=== PATIENT | female | born 1955 | race Caucasian/White ===

== ENCOUNTER → 2020-08-03 13:26 | Outpatient (CLI) | payer OTHER, SELFPAY ==
--- NOTE | ~2020-08-03 | DEXA_ITS ---
Bone Density Report Name: Laurel Esquivel Age: 64 Sex: Female Ethnicity: White Date of : 1955 Indication: postmenopausal; screening for osteoporosis; Referring Provider: PABLITO, BARI [place] Study: Bone densitometry was performed. Exam Date: August 03, 2020 Accession number: [id number] Bone Density: Region BMD T-score Z-score Classification AP Spine (L1-L4) 0.669 -3.4 -1.8 Osteoporosis Femoral Neck (Left) 0.556 -2.6 -1.2 Osteoporosis Total Hip (Left) 0.723 -1.8 -0.7 Osteopenia Femoral Neck (Right) 0.596 -2.3 -0.9 Osteopenia Total Hip (Right) 0.709 -1.9 -0.8 Osteopenia Total Hip Mean 0.716 -1.9 -0.8 Osteopenia World Health Organization criteria for BMD impression classify patients as: Normal (T-score at or above -1.0), Osteopenia (T-score between -1.0 and -2.5), or Osteoporosis (T-score at or below -2.5). 10-year Fracture Risk: FRAX not reported because: Some T-score for Spine Total or Hip Total or Femoral Neck at or below -2.5 Clinical Information Provided by Patient: Has used the following medications: Vitamin D Patient maximum height was 60 Menopause Age: 56 Drinks caffeinated beverages Onset of menses at age 16 Number of children 2 Missed period for more than 6 months in a row Impression: The patient has osteoporosis, based on the Total Spine T-score. Discussion: INCREASED RISK OF FRACTURE. BONE DENSITY IS UNDESIRABLY LOW AT ONE OR MORE SKELETAL SITES, CONSISTENT WITH POSTMENOPAUSAL OSTEOPOROSIS. This patient's lowest T-score meets the World Health Organization's (WHO) criteria for osteoporosis at one or more sites (T-score -2.5 or below). In untreated patients, the risk of osteoporotic fracture increases approximately two-fold for each 1.0 SD decrease in T-score. Low bone density is not the only risk factor for fracture; also consider factors such as patient's age, frailty or poor health, risk of falling, risk of injury, previous osteoporotic fracture, family history of osteoporosis, cigarette smoking, low body weight, etc. Not everyone with low bone mineral density has osteoporosis; osteomalacia and other metabolic bone disorders should also be considered. Patients who have osteoporosis should be evaluated for specific diseases and conditions (secondary causes) that may cause or contribute to bone loss. The [place] [employer]ocrinologists (AACE) and National Osteoporosis Foundation (NOF) recommend pharmacologic intervention for all postmenopausal women whose T-score is in this range. The patient should follow a healthful lifestyle (good nutrition with adequate calcium and vitamin D, and appropriate weight-bearing exercise). Follow-Up: Consider a repeat BMD and Vertebral Fracture Assessment (VFA) exam in 2 years or sooner if medically necessary, to reassess this patient's status
== END ==
PROVIDERS: PCP Family Medicine; Visit Provider Family Medicine
DX: M81.0 Age-related osteoporosis without current pathological fracture (principal); M85.852 Other specified disorders of bone density and structure, left thigh; M85.851 Other specified disorders of bone density and structure, right thigh
CPT/HCPCS: 77080

== ENCOUNTER 2020-10-10 06:54 | Outpatient (NON) | payer OTHER, SELFPAY ==
[2020-10-10 18:01] LABS: SARS-CoV-2 RNA PCR Negative
== END 2020-10-10 06:55 ==
LOC: ANHCOVIDDT 07:01
PROVIDERS: PCP Family Medicine; Visit Provider Family Medicine
DX: R50.9 Fever, unspecified (principal); Z20.828 Contact with and (suspected) exposure to other viral communicable diseases
CPT/HCPCS: 87635; C9803; U0003

== ENCOUNTER → 2020-12-08 01:37 | Outpatient (CLI) | payer OTHER, SELFPAY ==
[2020-12-08 23:34] LABS: SARS-CoV-2 RNA PCR Negative
== END ==
PROVIDERS: PCP Family Medicine; Visit Provider Internal Medicine Gastroenterology
DX: Z01.812 Encounter for preprocedural laboratory examination (principal); Z20.822 Contact with and (suspected) exposure to COVID-19
CPT/HCPCS: C9803; U0003; U0005

== ENCOUNTER 2020-12-12 01:07 | Day surgery (SDC) | payer OTHER, SELFPAY ==
[2020-12-07 13:44] VITALS: BMI 22.8
[2020-12-12 08:26] VITALS: BP 148/79; PULSE 62; RESP 16; TEMP 36.9; O2SAT 100; BMI 21.7
[2020-12-12] MEDS: LACTATED RINGERS 1,000 ML 150 ML IV CONT (08:41)
--- NOTE | 2020-12-12 09:01 | P.PNAN_ITS ---
Anes - Initial Pre Proc Eval Procedure: Operation Date: 12/12/20 09:30 Proposed Procedures p Esophagogastroduodenoscopy - Josh Fernandez MD Date/Time: 12/12/20 09:01 Surgeon: Josh Fernandez MD Pre Op Diagnosis: GERD Patient Data Age: 65 Gender: F Height: 1.52 m Weight: 50.3 kg Last Vital Signs Temp 36.9 C 12/12/20 08:26 Pulse 62 12/12/20 08:26 Resp 16 12/12/20 08:26 BP 148/79 H 12/12/20 08:26 Pulse Ox 100 12/12/20 08:26 Allergies Allergy/AdvReac Type Severity Reaction Status Date / Time No Known Allergies Allergy Verified 12/12/20 08:23 Home Medications Medication Instructions Recorded Confirmed Type pantoprazole 40 mg tablet,delayed 40 mg PO QAM 11/29/20 12/07/20 History release zolpidem 10 mg tablet 10 mg PO ONCE 11/29/20 12/07/20 History Patient hx anesthesia problems: none Family hx anesthesia problems: none PMFSH Past Medical History Medical History Diaphragmatic disorder GERD (gastroesophageal reflux disease) Normal colonoscopy Osteoarthritis Osteoporosis Sinusitis Family History Family History Father Patient's father is in good health Family history of alcoholism Cerebrovascular accident Sibling Patient's sister is in good health Patient's brother is in good health Family history of seizure disorder Grandparent Malignant neoplasm of prostate, Onset Age: 80 Family history of lung cancer, Onset Age: 65 Other Diabetes mellitus Family history of allergic disorder Family history of attention deficit hyperactivity disorder (ADHD) Family history of eczema Social History Social History (Updated 12/03/20 @ 14:19 by Keysha Winslow [facility]) Smoking status: Never smoker Alcohol intake: never Substance use: never Substance use type: does not use Living arrangements: with family Gender identity (if verbalized by the patient): Female Spiritual care concerns: No Anes - Eval Final PreProcedure Day of Procedure 12/12/20 09:01 Patient weight: normal Heart: regular rate and rhythm Lungs: clear to auscultation and normal air movement Airway: Mallampati scale class II Neurological: alert and oriented Last oral intake: >/= 8 hours ASA classification: II Emergent: no Anesthetic plan: proceed Anesthesia type and monitoring: general GIVS Informed Consent: The patient's anesthetic plan and its attendant risks and benefits were discussed with the patient/family/POA. Questions were solicited and answers provided to the satisfaction of the patient/family/POA.
--- NOTE | 2020-12-12 09:42 | WPDHPUPDATE1 ---
History and Physical Update Update Date/Time: 12/12/20 09:42 History and Physical has been reviewed, including an updated exam of the patient. There are NO changes in the patient's condition. Risks, benefits, and alternatives have been discussed and questions answered. Patient agrees to proceed with procedure.
[2020-12-12 10:01] VITALS: BP 121/81; PULSE 65; RESP 17; O2SAT 97
[2020-12-12 10:11] VITALS: BP 121/81; PULSE 62; RESP 18; O2SAT 99
[2020-12-12 10:20] VITALS: BP 130/81; PULSE 66; RESP 14; O2SAT 99
== END 2020-12-12 10:22 | disposition home or self-care (01) ==
PROVIDERS: PCP Family Medicine; Visit Provider Internal Medicine Gastroenterology
PROC: 0DJ08ZZ Inspection of Upper Intestinal Tract, Via Natural or Artificial Opening Endoscopic (ICD-10-PCS; CPT 43235; principal; 2020-12-12 09:30)
DX: K29.50 Unspecified chronic gastritis without bleeding (principal); K21.9 Gastro-esophageal reflux disease without esophagitis; M81.0 Age-related osteoporosis without current pathological fracture
CPT/HCPCS: 43239; 88305; J2001; J2704; J7120

== ENCOUNTER 2021-02-01 16:40 | Emergency (ER) | payer OTHER, SELFPAY ==
[2021-02-01 16:53] VITALS: BP 137/71; PULSE 73; RESP 16; TEMP 36.6; O2SAT 99
--- NOTE | 2021-02-01 17:27 | ED.URI ---
HPI - URI/Sore Throat General Chief Complaint: Upper Respiratory Infection Stated Complaint: Sore Throat,Congestion Time Seen by Provider: 02/01/21 17:13 Source: patient Mode of arrival: ambulatory Limitations: no limitations History of Present Illness HPI Narrative: Patient presents today complaining of scratchiness in her throat, postnasal drip, ear fullness, and a possible right tonsil stone. Symptoms began 5 days ago. She tried to dislodge the tonsil stones with her WaterPik today and caused some bleeding on her tonsils. She denies a sore throat. She has been using Flonase, NyQuil, and Tylenol Sinus with some mild relief. She has had a [employer] COVID-19 vaccine on December 17. elicited complaint: other (Ear pressure, scratchiness in her throat) Related Data Home Medications Medication Instructions Recorded Confirmed pantoprazole 40 mg tablet,delayed 40 mg PO QAM 11/29/20 02/01/21 release zolpidem 10 mg tablet 10 mg PO HS 11/29/20 02/01/21 alendronate 70 mg PO WEEKLY 02/01/21 02/01/21 Allergies Allergy/AdvReac Type Severity Reaction Status Date / Time No Known Allergies Allergy Verified 02/01/21 16:44 Review of Systems Review of Systems: Narrative: CONSTITUTIONAL: Denies body aches, fever, chills, or sweats. EYES: Denies visual changes, redness, or discharge. ENT: Denies rhinorrhea, congestion, sore throat, or otalgia.+ Ear pressure, scratchy throat, tonsil stone CARDIOVASCULAR: Denies chest pain, palpitations, or edema. RESPIRATORY: Denies cough or dyspnea. GASTROINTESTINAL: Denies abdominal pain, nausea, vomiting, or diarrhea. GENITOURINARY: Denies dysuria or hematuria. SKIN: Denies rash, itching, or wounds. MUSCULOSKELETAL: Denies back pain, joint pain, or myalgia. NEUROLOGIC: Denies headache, numbness, tingling, or weakness. PSYCH: Denies depression or anxiety. [facility] Past Medical History Medical History Diaphragmatic disorder GERD (gastroesophageal reflux disease) Normal colonoscopy Osteoarthritis Osteoporosis Sinusitis Family History Family History Father Patient's father is in good health Family history of alcoholism Cerebrovascular accident Sibling Patient's sister is in good health Patient's brother is in good health Family history of seizure disorder Grandparent Malignant neoplasm of prostate, Onset Age: 80 Family history of lung cancer, Onset Age: 65 Other Diabetes mellitus Family history of allergic disorder Family history of attention deficit hyperactivity disorder (ADHD) Family history of eczema Social History Social History (Updated 12/03/20 @ 14:19 by Keysha Winslow [facility]) Smoking status: Never smoker Alcohol intake: never Substance use: never Substance use type: does not use Gender identity (if verbalized by the patient): Female Spiritual care concerns: No Comments At time of signature, I have reviewed and agree with nursing past medical, surgical, social and family history unless otherwise noted. Please see nursing chart for further information. There is no relevant family history pertinent to the presenting complaint Exam Narrative: Exam Narrative: GENERAL: Well-appearing, well-nourished, and in no acute distress. HEAD: Normocephalic, atraumatic. EYES: EOMI. No redness or drainage. Conjunctivae normal. ENT: Mucous membranes pink and moist. Nares clear. No rhinorrhea. TMs normal bilaterally. Throat normal. There is a tiny white pustule to the right posterior palatine arch without surrounding erythema or swelling. Tonsils are normal. No tonsil stones visualized. Uvula midline. NECK: Normal AROM. Supple. No lymphadenopathy. CHEST: No respiratory distress. Clear to auscultation. HEART: Regular rate and rhythm. No murmur appreciated. Normal peripheral pulses. EXTREMITIES: Normal range of motion.
== END 2021-02-01 17:47 | disposition home or self-care (01) ==
PROVIDERS: Emergency Provider Nurse Practitioner; PCP Family Medicine
DX: J30.9 Allergic rhinitis, unspecified (principal); K21.9 Gastro-esophageal reflux disease without esophagitis; M19.90 Unspecified osteoarthritis, unspecified site; M81.0 Age-related osteoporosis without current pathological fracture
CPT/HCPCS: 87081; 87880; 99213; G0463

== ENCOUNTER → 2021-11-04 09:23 | Outpatient (CLI) | payer OTHER, SELFPAY ==
[2021-11-04 19:02] LABS: SARS-CoV-2 RNA PCR Positive
== END ==
PROVIDERS: PCP Family Medicine; Visit Provider Family Medicine
DX: U07.1 COVID-19 (principal); R50.9 Fever, unspecified
CPT/HCPCS: C9803; U0003; U0005

== ENCOUNTER 2022-05-27 10:52 | Emergency (ER) | payer OTHER, SELFPAY ==
[2022-05-27] VITALS (21 sets, daily range): BP systolic 115–134; BP diastolic 69–89; PULSE 50–72; RESP 9–23; TEMP 37; O2SAT 98–100
--- NOTE | ~2022-05-27 | XR_ITS ---
EXAMINATION: XR chest 2V DATE: 05/27/2022 11:19 INDICATION: Generalized chest pain TECHNIQUE: PA and lateral views of the chest are obtained. COMPARISON: None available FINDINGS: The lungs are free of acute opacities. No pleural effusion or pneumothorax. The cardiomedia stinal silhouette is normal. There is moderate thoracic spondylosis. Surgical clips in the right uppe r quadrant are likely from prior cholecystectomy. IMPRESSION: 1. No acute cardiopulmonary abnormality. Reviewed, dictated and finalized at location A.
--- NOTE | 2022-05-27 10:59 | ECG_ITS ---
Measurements Intervals [place] Rate: 56 P: -3 NV: 164 QRS: 53 QRSD: 91 T: 61 QT: 375 QTc: 365 Interpretive Statements SINUS BRADYCARDIA NONSPECIFIC ST ABNORMALITY ABNORMAL ECG NO PREVIOUS ECG AVAILABLE FOR COMPARISON Electronically Signed On 05-27-2022 12:10:47 CDT by Michael Perez M.D.
--- NOTE | 2022-05-27 11:12 | ED.CHESTPAIN ---
HPI - Chest Pain General Chief Complaint: Chest Pain Stated Complaint: chest pain, dizzy Time Seen by Provider: 05/27/22 11:12 History of Present Illness HPI narrative: Patient is a 66-year-old female with history of acid reflux presenting to the emergency department for evaluation of left-sided chest pain. Patient reports onset of left-sided chest pain that occurred this morning while she was at rest. Patient believes the pain was around 9 in the morning. Described as a sharp, aching pain over the left side of her chest without radiation to the back, shoulder, neck. She did report mild discomfort of her left arm. Pain lasted for approximately 10 minutes and is now resolved. She reports associated diaphoresis and nausea. Patient reports history of this in the past for which she had a stress test performed which was normal. Patient denies any recent long car or air travel. Denies any leg swelling or calf pain. Denies history of DVT or coagulopathy. Patient states that she took an pantoprazole which she is wondering if that contributed to her symptoms. Patient does not smoke. She denies history of coronary artery disease in self. She reports her father had a history of stroke, no known history of heart attack in immediate family members. Related Data Home Medications Medication Instructions Recorded Confirmed pantoprazole 40 mg tablet,delayed 40 mg PO QAM 11/29/20 09/10/21 release zolpidem 10 mg tablet 10 mg PO HS 11/29/20 09/10/21 alendronate 70 mg tablet 70 mg PO WEEKLY 02/01/21 09/10/21 Bacillus coagulans 250 million cell PO 06/19/21 09/10/21 cell chewable tablet (Digestive Advantage Probiotic Gummy) glucosamine 500 mg-msm 500 tablet PO 06/19/21 09/10/21 mg-Boswellia 33.3 mg-herb 182 70 mg tablet magnesium L-lactate 84 mg 84 mg PO TID 06/19/21 09/10/21 tablet,extended release multivitamin, stress formula 1 tablet PO DAILY 06/19/21 09/10/21 Allergies Allergy/AdvReac Type Severity Reaction Status Date / Time No Known Allergies Allergy Verified 09/10/21 10:41 Review of Systems Review of Systems: CONSTITUTIONAL: Denies fever, chills, or sweats. EYES: Denies visual changes, redness, or discharge. ENT: Denies rhinorrhea, congestion, sore throat, or otalgia. CARDIOVASCULAR: Denies current chest pain, palpitations, or edema. RESPIRATORY: Denies cough or dyspnea. GASTROINTESTINAL: Denies abdominal pain, nausea, vomiting, or diarrhea. GENITOURINARY: Denies dysuria or hematuria. SKIN: Denies rash or itching. MUSCULOSKELETAL: Denies back pain, joint pain, or myalgia. NEUROLOGIC: Denies headache, numbness, or weakness. [facility] Past Medical History Medical History Diaphragmatic disorder GERD (gastroesophageal reflux disease) Normal colonoscopy Osteoarthritis Osteoporosis Sinusitis Surgical History Surgical History H/O colposcopy with cervical biopsy H/O dilation and curettage 1976 for AUB History of cholecystectomy [place] teeth removed Family History Family History Father Patient's father is in good health Family history of alcoholism Cerebrovascular accident Sibling Patient's sister is in good health Patient's brother is in good health Family history of seizure disorder Grandparent Malignant neoplasm of prostate, Onset Age: 80 Family history of lung cancer, Onset Age: 65 Other Diabetes mellitus Family history of allergic disorder Family history of attention deficit hyperactivity disorder (ADHD) Family history of eczema Social History Social History Smoking status: Never smoker Alcohol intake: current Substance use: never Substance use type: does not use Gender identity (if verbalized by the patient): Female Spiritual care concerns: No
[2022-05-27 11:21] LABS: Basophils Absolute Auto 0.1 K/mm3 (0.0-0.1); Basophils Percent Auto 0.8 % (0.2-1.2); Eosinophils Absolute Auto 0.1 K/mm3 (0-0.3); Eosinophils Percent Auto 0.7 % (0-4.4); Hematocrit 39.4 % (37.0-47.0); Hemoglobin 12.8 g/dL (12.0-15.0); Immature Granulocyte Absolute 0.03 K/mm3 (0.00-0.031); Immature Granulocyte Percent A 0.4 % (0-0.5); Lymphocytes Absolute Auto 1.77 K/mm3 (0.9-3.2); Lymphocytes Percent Auto 24.7 % (18.3-44.2); Mean Corpuscular HGB Conc 32.5 g/dl (32-36); Mean Corpuscular Volume 92.3 fl (80-100); Mean Platelet Volume 10.1 fl (7.4-10.4); Monocytes Absolute Auto 0.7 K/mm3 (0.1-0.6); Monocytes Percent Auto 9.6 % (2.6-8.5); Neutrophils Absolute Auto 4.6 K/mm3 (1.3-6.7); Neutrophils Percent Auto 63.8 % (45.5-73.1); Platelet Count Result 282 k/mm3 (150-375); Red Blood Count 4.27 M/mm3 (4.2-5.4); Red Cell Distribution Width 13.3 % (11.5-14.5); White Blood Count 7.2 K/mm3 (4.5-10.0)
[2022-05-27 11:32] LABS: Alanine Aminotransferase 14 U/L (6-35); Albumin Level 4.5 g/dL (3.5-5.1); Alkaline Phosphatase 57 U/L (38-126); Anion Gap 8 mmol/L (8-16); Aspartate Amino Transferase 23 U/L (14-36); Bilirubin,Total 0.4 mg/dL (0.2-1.3); Blood Urea Nitrogen 15 mg/dL (7-17); Calcium 9.1 mg/dL (8.4-10.2); Carbon Dioxide 29 mmol/L (22-30); Chloride 101 mmol/L (98-107); Estimated CRCL calculation 44 ml/min; Estimated Glomerular Filt Rate > 60; Glucose 91 mg/dL (65-110); Lipase 64 U/L (23-300); Potassium 4.3 mmol/L (3.4-5.0); Sodium 138 mmol/L (137-145)
[2022-05-27 11:37] LABS: Partial Thromboplastin Time 28.1 SECONDS (22.3-36.8); Prothrombin Time 12.7 Seconds (11.1-14.7)
[2022-05-27 11:44] LABS: Troponin I < 0.012 ng/mL (0.000-0.034)
[2022-05-27] MEDS: ASPIRIN 81 MG CHEWABLE TABLET 324 MG PO (12:29)
[2022-05-27 14:38] LABS: Troponin I < 0.012 ng/mL (0.000-0.034)
== END 2022-05-27 15:10 | disposition home or self-care (01) ==
PROVIDERS: Emergency Provider Emergency Medicine; PCP Family Medicine
DX: R07.89 Other chest pain (principal); K21.9 Gastro-esophageal reflux disease without esophagitis; M19.90 Unspecified osteoarthritis, unspecified site; M81.0 Age-related osteoporosis without current pathological fracture; R00.1 Bradycardia, unspecified; R94.31 Abnormal electrocardiogram [ECG] [EKG]
CPT/HCPCS: 36415; 71046; 80053; 83690; 84484; 85025; 85610; 85730; 93005; 99284; A9270

== ENCOUNTER → 2022-08-07 12:21 | Outpatient (CLI) | payer OTHER, SELFPAY ==
--- NOTE | ~2022-08-07 | DEXA_ITS ---
Bone Density Report Name: TAWANA WESTBROOK Age: 66 Sex: Female Ethnicity: White Date of : 1955 Indication: postmenopausal osteoporosis; monitoring treatment; inflammatory bowel disease; Referring Provider: PABLITO, BARI Bangura Study: Bone densitometry was performed. Exam Date: August 07, 2022 Accession number: [id number] Bone Density: Region BMD T-score Z-score Classification AP Spine (L1-L4) 0.716 -3.0 -1.3 Osteoporosis Femoral Neck (Left) 0.576 -2.5 -1.0 Osteoporosis Total Hip (Left) 0.749 -1.6 -0.4 Osteopenia Femoral Neck (Right) 0.647 -1.8 -0.3 Osteopenia Total Hip (Right) 0.733 -1.7 -0.5 Osteopenia Total Hip Mean 0.741 -1.7 -0.5 Osteopenia World Health Organization criteria for BMD impression classify patients as: Normal (T-score at or above -1.0), Osteopenia (T-score between -1.0 and -2.5), or Osteoporosis (T-score at or below -2.5). 10-year Fracture Risk: FRAX not reported because: Some T-score for Spine Total or Hip Total or Femoral Neck at or below -2.5 Treated for osteoporosis Previous Exams: Region Exam Age BMD T-score BMD Change BMD Change Date g/cm2 vs Baseline vs Previous AP Spine(L1-L4) 08/07/2022 66 0.716 -3.0 0.047* 0.047* 08/03/2020 64 0.669 -3.4 Total Hip(Left) 08/07/2022 66 0.749 -1.6 0.027 0.027 08/03/2020 64 0.723 -1.8 Total Hip(Right) 08/07/2022 66 0.733 -1.7 0.025 0.025 08/03/2020 64 0.709 -1.9 *Denotes significance at 95% confidence level, LSC for AP Spine = 0.022 g/cm2, LSC for Total Hip = 0.027 g/cm2 Clinical Information Provided by Patient: Is being treated for osteoporosis Has used the following medications: Fosamax (i.e. alendronate), Vitamin D, Calcium Has the following medical conditions: Inflammatory bowel diseases Patient maximum height was 60 Menopause Age: 56 Does not regularly consume dairy products Drinks caffeinated beverages Onset of menses at age 16 Number of children 2 Missed period for more than 6 months in a row Impression: The patient has osteoporosis, based on the Total Spine T-score. No significant bone loss was observed. Discussion: PATIENT UNDER TREATMENT WITH NO SIGNIFICANT BMD LOSS SINCE LAST EXAM. In an untreated patient, BMD typically declines with age. A lack of decline or gain is usually a sign that treatment is efficacious and fracture risk is reduced. It is important to ask patients whether they are taking
== END ==
PROVIDERS: PCP Family Medicine; Visit Provider Family Medicine
DX: M81.0 Age-related osteoporosis without current pathological fracture (principal); M85.852 Other specified disorders of bone density and structure, left thigh; M85.851 Other specified disorders of bone density and structure, right thigh
CPT/HCPCS: 77080

== ENCOUNTER → 2022-10-20 13:42 | Outpatient (CLI) | payer MEDICARE, OTHER, SELFPAY ==
--- NOTE | ~2022-10-20 | XR_ITS ---
EXAM: XR knee LT 3V DATE: 10/20/2022 14:31 HISTORY: Pain in left knee . COMPARISON: None available. FINDINGS: Normal mineralization. No fracture or dislocation. No lytic or blastic lesion. Mild tricom partmental osteophytosis. Quadriceps enthesopathy. No erosion or periosteal change. Soft tissues with in normal limits. IMPRESSION: Mild left knee osteoarthritis. Reviewed, dictated and finalized at location K. SS REP
== END ==
PROVIDERS: PCP Family Medicine; Visit Provider Physician Assistant
DX: M17.12 Unilateral primary osteoarthritis, left knee (principal)
CPT/HCPCS: 73562

== ENCOUNTER 2023-02-19 14:46 | Outpatient (CLI) | payer MEDICARE, OTHER, SELFPAY ==
[2023-02-19 17:19] LABS: Thyroid Stimulating Hormone Reflex 0.339 uIU/mL (0.465-4.68)
[2023-02-19 20:09] LABS: Total Triiodothyronine (T3) 1.22 NG/ML (0.97-1.69)
[2023-02-25 04:54] LABS: FSH 79.2 mIU/mL (***); Prolactin 4.1 ng/mL (***)
[2023-03-03 20:02] LABS: Estradiol, Ultrasensitive 3 pg/mL
== END 2023-02-19 14:47 | disposition home or self-care (01) ==
LOC: ANHLAB 15:14
PROVIDERS: PCP Family Medicine; Visit Provider Obstetrics & Gynecology
DX: N95.1 Menopausal and female climacteric states (principal); R53.83 Other fatigue
CPT/HCPCS: 36415; 82670; 83001; 84146; 84439; 84443; 84480

== ENCOUNTER → 2023-06-11 09:33 | Outpatient (CLI) | payer MEDICARE, OTHER, SELFPAY ==
--- NOTE | ~2023-06-11 | MR_ITS ---
MRI of the lumbar spine Clinical History: Back pain Technique: Axial T2-weighted images, and sagittal T1-weighted, T2-weighted, and T2 fat-sat images wer e acquired. COMPARISON: 03/23/2019 Findings: Stable minimal grade 1 anterolisthesis of L4 over L5. No acute fracture seen. No bone marro w signal abnormality seen. No significant disc bulge or herniation seen at any lumbar level. There are moderate to severe facet joint degenerative changes at L4-L5 and L5-S1. No central canal stenosis at any level in the lumbar s pine. Neural foramina are preserved throughout. Paravertebral soft tissues are unremarkable. Impression: Mild degenerative spondylosis, as above. Stable minimal grade 1 anterolisthesis of L4 over L5. Reviewed, dictated and finalized at location M. Impression: Mild degenerative spondylosis, as above. Stable minimal grade 1 anterolisthesis of L4 over L5.
--- NOTE | ~2023-06-11 | MR_ITS ---
MRI of the cervical spine Clinical History: Cervicalgia Technique: Axial T2-weighted and gradient images, and sagittal T1-weighted, T2-weighted, and STIR erica ges were acquired. Findings: There is no fracture or sublocation of the cervical spine. Vertebral bodies maintain normal height and alignment. No suspicious bone marrow signal abnormality seen. At C2-C3, there is no disc bulge or herniation. No spinal canal stenosis, cord compression, or neural foraminal narrowing. At C3-C4, there is no disc bulge or herniation. No spinal canal stenosis, cord compression, or neural foraminal narrowing. At C4-C5, there is minimal disc bulge. No spinal canal stenosis, cord compression, or neural foramina l narrowing. At C5-C6, there is no disc bulge or herniation. No spinal canal stenosis or cord compression. There i s mild bilateral neural foraminal narrowing. At C6-C7, there is minimal disc osteophyte complex. There is bilateral neural foraminal narrowing. No central canal stenosis or cord compression. No abnormal signal seen in the spinal cord. Paravertebral soft tissues are unremarkable. Impression: Mild degenerative spondylosis, as above. Reviewed, dictated and finalized at location . Impression: Mild degenerative spondylosis, as above.
== END ==
PROVIDERS: Visit Provider Family Medicine
DX: M47.812 Spondylosis without myelopathy or radiculopathy, cervical region (principal); M47.816 Spondylosis without myelopathy or radiculopathy, lumbar region
CPT/HCPCS: 72141; 72148

== ENCOUNTER 2024-04-04 07:41 | Outpatient (CLI) | payer MEDICARE, OTHER, SELFPAY ==
--- NOTE | ~2024-04-04 | CT_ITS ---
CT of the Abdomen and Pelvis: Indication: Abdominal pain Technique: 2.5 mm axial scans were obtained through the abdomen and pelvis following intravenous adm inistration of 100 cc of Omnipaque 350. Dose reduction technique was used on this scan by utilizing a utomated exposure control and iterative reconstruction technique. The dose-length product (DLP) was 1 91.10 mGy-cm. Findings: Scans through the lung bases demonstrate 1.7 x 1.3 cm low-density, circumscribed right inf rahilar pulmonary nodule (axial image 6). The liver, spleen, pancreas, adrenals and kidneys are within normal limits. Cholecystectomy clips are present. No evidence of aortic aneurysm. No lymphadenopathy. No bowel obstruction or bowel wall thickening. There is no evidence to suggest acute appendicitis. Images through the pelvis were performed. Urinary bladder unremarkable. No pelvic mass seen. No ascit es. Impression: No acute abnormality seen in the abdomen or pelvis. 1.7 x 1.3 cm low-density, circumscribed right infrahilar pulmonary nodule. While indeterminate by erica ging, I favor a benign nodule/lesion. Comparison with any prior outside chest CTs would be extremely useful to assess for chronicity of this finding. Otherwise, consider short interval follow-up in 1-3 months or possibly PET/CT. Reviewed, dictated and finalized at [facility]. Impression: No acute abnormality seen in the abdomen or pelvis. 1.7 x 1.3 cm low-density, circumscribed right infrahilar pulmonary nodule. Whil e indeterminate by imaging, I favor a benign nodule/lesion. Comparison with any prior outside chest CTs would be extremely useful to assess for chronicity of this finding. Otherwise, consider short interval follow-up in 1-3 months or pos sibly PET/CT.
[2024-04-04 08:07] LABS: Estimated Glomerular Filt Rate > 60
== END 2024-04-04 07:42 | disposition home or self-care (01) ==
PROVIDERS: PCP Nurse Practitioner Family; Visit Provider Nurse Practitioner Family
DX: R10.31 Right lower quadrant pain (principal)
CPT/HCPCS: 74177; Q9967

== ENCOUNTER 2024-05-12 09:21 | Outpatient (CLI) | payer MEDICARE, OTHER, SELFPAY ==
--- NOTE | ~2024-05-12 | PE_ITS ---
EXAMINATION: PET skull to mid thigh DATE: 05/12/2024 10:56 INDICATION: Nodule of lung. TECHNIQUE: Blood glucose level was 79 mg/dL. 9.586 mCi of 18-fluorodeoxyglucose (18-FDG) was administ ered i.v. Low dose computed tomography (CT) images were acquired from the base of the brain to the pr oximal thighs for attenuation correction and anatomic localization. Automated exposure control was em ployed. Dose-length product (DLP) was 562 mGy-cm. Positron emission tomography (PET) images were acqu ired in the same distribution. COMPARISON: CT abdomen and pelvis 04/04/2024 FINDINGS: Head/neck: There is a multinodular goiter extending into the superior mediastinum. There is focal inc reased activity in the left thyroid lobe with maximum SUV of 3.9. There are no pathologically enlarge d lymph nodes. Chest: The lungs demonstrate mild dependent atelectasis. No pleural effusion. The heart size is kellen l. No pericardial effusion. There is a prominent pericardial recess at the right hilum correlating wi th the previously described CT finding. There are no pathologically enlarged lymph nodes. Abdomen/pelvis/proximal thighs: The liver is normal. There are changes of cholecystectomy. The spleen , pancreas, adrenal glands, and kidneys are normal. There are no dilated loops of bowel. The appendix is normal. There is diverticulosis of the colon without evidence of diverticulitis. There are no pat hologically enlarged lymph nodes. There is no free intraperitoneal fluid. There is no osseous maligna ncy. IMPRESSION: 1. Prominent pericardial recess at the right hilum correlating with the previously described CT findi ng. 2. Multinodular goiter with small focus of mildly increased activity. Consider thyroid ultrasound for risk stratification. Reviewed, dictated and finalized at location A. IMPRESSION: 1. Prominent pericardial recess at the right hilum correlating with the previou sly described CT finding. 2. Multinodular goiter with small focus of mildly increased activity. Consider thyroid ultrasound for risk stratification.
[2024-05-12 09:42] LABS: Glucose Point of Care 79 mg/dl (65-105)
== END 2024-05-12 09:22 | disposition home or self-care (01) ==
LOC: ANHIMG 09:23
PROVIDERS: PCP Nurse Practitioner Family; Visit Provider Nurse Practitioner Family
DX: R91.1 Solitary pulmonary nodule (principal); E04.2 Nontoxic multinodular goiter
CPT/HCPCS: 78815; A9552

== ENCOUNTER 2024-05-25 10:16 | Outpatient (CLI) | payer MEDICARE, OTHER, SELFPAY ==
--- NOTE | ~2024-05-25 | US_ITS ---
EXAMINATION: US thyroid DATE: 05/25/2024 11:14 INDICATION: Nontoxic goiter. TECHNIQUE: Multiple ultrasound images of the thyroid were obtained. COMPARISON: PET/CT 05/12/2024 FINDINGS: The right thyroid lobe measures 4.5 x 1.7 x 1.3 cm. The left thyroid lobe measures 6.8 x 3.1 x 3.7 c m. In the left thyroid lobe, there is a 4.7 cm solid, hypoechoic, wider than tall nodule with smooth margin without echogenic foci (TI-RADS TR4). IMPRESSION: 1. Left thyroid nodule. Ultrasound-guided fine-needle aspiration is recommended. Reviewed, dictated and finalized at location A. IMPRESSION: 1. Left thyroid nodule. Ultrasound-guided fine-needle aspiration is recommended .
== END 2024-05-25 10:17 ==
PROVIDERS: PCP Nurse Practitioner Family; Visit Provider Nurse Practitioner Family
DX: R94.6 Abnormal results of thyroid function studies (principal); E04.1 Nontoxic single thyroid nodule
CPT/HCPCS: 76536

== ENCOUNTER 2024-05-30 16:21 | Emergency (ER) | payer MEDICARE, OTHER, SELFPAY ==
[2024-05-30 16:27] VITALS: BP 136/74; PULSE 62; RESP 16; TEMP 36.9; O2SAT 100
--- NOTE | 2024-05-30 16:45 | ED.URI ---
HPI - URI/Sore Throat General Chief Complaint: Upper Respiratory Infection Stated Complaint: tonsil issue left side Time Seen by Provider: 05/30/24 16:46 Source: patient, RN notes reviewed and old records reviewed Mode of arrival: ambulatory Limitations: no limitations History of Present Illness HPI Narrative: Patient presents with complaints of left sided throat pain for couple of days. Patient reports that she has crypts in her tonsils. Follows with ENT. Further reports that she typically washes her tonsils with a Waterpik or a Q-tip 3 times a day. States that recently she went a month without performing this ritual, now complains of left-sided pain and ?white spots? Related Data Home Medications Medication Instructions Recorded Confirmed zolpidem 10 mg tablet 10 mg PO HS 11/29/20 05/30/24 alendronate 70 mg tablet (Fosamax) 70 mg PO WEEKLY 02/01/21 05/30/24 Allergies Allergy/AdvReac Type Severity Reaction Status Date / Time No Known Allergies Allergy Verified 03/23/24 08:35 Review of Systems Review of Systems: All systems reviewed & are unremarkable except as noted in HPI and below Constitutional: Constitutional: Reports no additional constitutional complaints ENT: Reports system reviewed and no additional complaints, except as documented and Reports as per HPI Cardiovascular: Cardiovascular: Reports no additional cardiovascular complaints Respiratory: Respiratory: Reports no additional respiratory complaints Gastrointestinal: Gastrointestinal: Reports no additional gastrointestinal complaints [facility] Past Medical History Medical History Bloating Diaphragmatic disorder Epigastric pain GERD (gastroesophageal reflux disease) Nausea Normal colonoscopy Osteoarthritis Osteoporosis RLQ abdominal pain Sinusitis Surgical History Surgical History H/O colposcopy with cervical biopsy H/O dilation and curettage 1976 for AUB History of cholecystectomy [place] teeth removed Family History Family History Father Patient's father is in good health Family history of alcoholism Cerebrovascular accident Sibling Patient's sister is in good health Patient's brother is in good health Family history of seizure disorder Grandparent Malignant neoplasm of prostate, Onset Age: 80 Family history of lung cancer, Onset Age: 65 Other Diabetes mellitus Family history of allergic disorder Family history of attention deficit hyperactivity disorder (ADHD) Family history of eczema Social History Social History Smoking status: Never smoker Alcohol intake: current Substance use: never Substance use type: does not use Living arrangements: with family Occupation/Education: retired Gender identity (if verbalized by the patient): Female Spiritual care concerns: No Comments At the time of my signature, I reviewed and agree with the nursing past medical, surgical, social, and family history. There is no relevant family history pertinent to the patient complaint. Exam Const: General: cooperative, no acute distress, alert and awake Orientation/consciousness: oriented to person, oriented to place and oriented to time HENMT: Head: normal to inspection Throat: abnormal tonsil on the left erythema, crypts and other (Tonsil stone noted with surrounding irritation) Neck: Lymphatic: lymphadenopathy (left anterior cervical) Resp: Effort & Inspection: normal respiratory effort and able to speak in complete sentences Auscultation: clear to auscultation bilaterally, no crackles, no rales, no rhonchi and no wheezes Cardio: Palpation: normal PMI Rate: regular rate Rhythm: regular rhythm Heart sounds: S1 normal heart sound present and S2 normal heart sound present Neuro:
== END 2024-05-30 17:03 | disposition home or self-care (01) ==
PROVIDERS: Emergency Provider Nurse Practitioner Family; PCP Nurse Practitioner Family
DX: J03.90 Acute tonsillitis, unspecified (principal); K21.9 Gastro-esophageal reflux disease without esophagitis; M19.90 Unspecified osteoarthritis, unspecified site; M81.0 Age-related osteoporosis without current pathological fracture
CPT/HCPCS: 99213; G0463

== ENCOUNTER 2024-07-14 07:54 | Outpatient (CLI) | payer MEDICARE, OTHER, SELFPAY ==
--- NOTE | ~2024-07-14 | CT_ITS ---
CT soft tissue neck w con Ordering provider: Roberto Muhammad, History: 68 years Female with . TONSILLOLITH;SORE THROAT . Comparison: None. Technique: CT soft tissues neck was performed with contrast. . Automated exposure control and iterat maria dolores reconstruction technique were employed. The dose-length product was 412.21 mGy-cm. 75 mL Omnipaqu e 350 was given IV. Findings: LOWER HEAD: The visualized brain parenchyma, optic globes/orbits and mastoids are normal. The visua lized paranasal sinuses are well aerated. SALIVARY GLANDS: Normal. THYROID: Gross enlargement of the left lobe of thyroid suggestive of a mass or enlarged nodule which measures 5.3 x 4.5x 7.6 cm and causing deviation of the trachea to the right side. Extension into the superior mediastinum is noted. Further evaluation advised. The right lobe is unremarkable. SUPRAHYOID DEEP SPACES: Normal. CAROTID ARTERIES: Normal. JUGULAR VEINS: Normal. TONSILS: Normal. ORAL CAVITY: Partially obscured by dental amalgam but normal as visualized. PHARYNX, LARYNX AND TRACHEA: Patent and normal. No prevertebral soft tissue swelling. SUPERFICIAL SOFT TISSUES: Normal. No lymphadenopathy or neck mass. THORACIC INLET/VISUALIZED UPPER CHEST: Dependent atelectatic changes. SKELETAL: Normal. IMPRESSION: 1. Large left thyroid mass. 2. No evidence of enlarged tonsils are tonsillar abscess. Clinical evaluation advised. Reviewed, dictated and finalized at location A.
[2024-07-14 08:13] LABS: Estimated Glomerular Filt Rate > 60
== END 2024-07-14 07:55 | disposition home or self-care (01) ==
PROVIDERS: PCP Emergency Medicine; Visit Provider Otolaryngology
DX: E07.9 Disorder of thyroid, unspecified (principal); J35.8 Other chronic diseases of tonsils and adenoids
CPT/HCPCS: 70491; Q9967

== ENCOUNTER 2024-07-19 09:33 | Outpatient (CLI) | payer MEDICARE, OTHER, SELFPAY ==
--- NOTE | ~2024-07-19 | US_ITS ---
EXAMINATION: US FNA w image guidance DATE: 07/19/2024 10:38 INDICATION: Thyroid nodule. TECHNIQUE: The procedure and its benefits and risks were discussed with the patient. Risks specifically discusse d included bleeding. The patient verbalized understanding of the risks and agreed to proceed. The nec k was prepped and draped in the usual sterile manner. 1% lidocaine was used for local anesthesia. 6 passes were made with a 25G needle into the lesion under ultrasound guidance. There were no immedia te complications. FINDINGS: Grayscale ultrasound images demonstrate needles advanced into a 4.7 cm left thyroid nodule for biopsy . IMPRESSION: 1. Ultrasound-guided fine needle aspiration of a left thyroid nodule. Reviewed, dictated and finalized at location A.
== END 2024-07-19 09:34 | disposition home or self-care (01) ==
PROVIDERS: PCP Nurse Practitioner Family; Visit Provider Nurse Practitioner Family
DX: E04.1 Nontoxic single thyroid nodule (principal)
CPT/HCPCS: 10005; 88172; 88173; 88305

== ENCOUNTER 2024-09-14 08:27 | Outpatient (CLI) | payer MEDICARE, OTHER, SELFPAY ==
--- NOTE | ~2024-09-14 | DEXA_ITS ---
Bone Density Report Name: TAWANA WESTBROOK Age: 68 Sex: Female Ethnicity: White Date of : 1955 Indication: postmenopausal; screening for osteoporosis; inflammatory bowel disease; Referring Provider: PABLITO, BARI [place] Study: Bone densitometry was performed. Exam Date: September 14, 2024 Accession number: [id number] Bone Density: Region BMD T-score Z-score Classification AP Spine(L1-L4) 0.704 -3.1 -1.2 Osteoporosis Femoral Neck (Left) 0.576 -2.5 -0.8 Osteoporosis Total Hip (Left) 0.740 -1.7 -0.3 Osteopenia Femoral Neck (Right) 0.598 -2.3 -0.6 Osteopenia Total Hip (Right) 0.719 -1.8 -0.5 Osteopenia Total Hip Mean 0.730 -1.8 -0.4 Osteopenia World Health Organization criteria for BMD impression classify patients as: Normal (T-score at or above -1.0), Osteopenia (T-score between -1.0 and -2.5), or Osteoporosis (T-score at or below -2.5). 10-year Fracture Risk: FRAX not reported because: Some T-score for Spine Total or Hip Total or Femoral Neck at or below -2.5 Treated for osteoporosis Clinical Information Provided by Patient: Is being treated for osteoporosis Has used the following medications: Fosamax (i.e. alendronate), Vitamin D, Calcium Has the following medical conditions: Inflammatory bowel diseases Patient maximum height was 60.0 No regular weight bearing exercise Drinks caffeinated beverages Onset of menses at age 16 Number of children 2 Impression: The patient has osteoporosis, based on the Total Spine T-score. Discussion: It is important to ask patients whether they are taking their medications and to encourage continued and appropriate compliance with their osteoporosis therapies to reduce fracture risk. It is also important to review their risk factors and encourage appropriate calcium and vitamin D intakes, exercise, fall prevention and other lifestyle measures. Follow-Up: Consider a repeat BMD and Vertebral Fracture Assessment (VFA) exam in 2 years or sooner if medically necessary, to reassess this patient's status. Reported by: ADA on 09/14/2024 9:00:00 AM. Reviewed, dictated and finalized at location AKavita ALEMAN
== END 2024-09-14 08:28 | disposition home or self-care (01) ==
LOC: ANHIMG 08:30
PROVIDERS: PCP Student in an Organized Health Care Education/Training Program; Visit Provider Family Medicine
DX: Z78.0 Asymptomatic menopausal state (principal); M81.0 Age-related osteoporosis without current pathological fracture; M85.852 Other specified disorders of bone density and structure, left thigh; M85.851 Other specified disorders of bone density and structure, right thigh
CPT/HCPCS: 77080